=== PATIENT | male | born 1990 | race Caucasian/White ===

== ENCOUNTER → 2018-09-21 | Outpatient (REF) | payer OTHER ==
[2018-09-21 20:01] LABS: INFLUENZA A AMPLIFICATION POSITIVE (NEGATIVE); INFLUENZA B AMPLIFICATION NEGATIVE (NEGATIVE)
== END ==
LOC: M LAB REF 16:26
PROVIDERS: ATTEND Physician Assistant Medical
DX: J11.1 Influenza due to unidentified influenza virus with other respiratory manifestations (principal)

== ENCOUNTER 2019-02-12 09:23 | Emergency (ER) | payer OTHER ==
[~2019-02-12] VITALS: Ht 185.4 cm; Wt 117.8 kg
[2019-02-12] MEDS ORDERED: zyzal (09:31)
[2019-02-12] MEDS ORDERED: ALBU8.5H (09:31)
[2019-02-12] MEDS ORDERED: CEFU1TAB22 (09:31)
[2019-02-12] MEDS ORDERED: ARNU1INH (09:31)
[2019-02-12 10:33] LABS: BASO # 0.1 10^3/uL (0.0-0.2); BASO % 1.7 % (0.0-1.0); EOS # 0.8 10^3/uL (0.0-0.5); EOS % 10.2 % (0.0-3.0); LYMPH # 2.2 10^3/uL (1.5-5.0); LYMPH % 26.6 % (24.0-44.0); MEAN CORPUSCULAR HEMOGLOBIN 29.2 pg (27.0-33.0); MEAN CORPUSCULAR VOLUME 85.7 fl (80.0-96.0); MONO # 0.6 10^3/uL (0.0-0.8); MONO % 6.8 % (0.0-5.0); NEUTROPHILS # 4.4 10^3/uL (1.5-8.5); NEUTROPHILS % 54.1 % (36.0-66.0); PLATELET COUNT, AUTOMATED 194 10^3/uL (150-450); RED BLOOD COUNT 6.17 10^6/uL (4.30-6.10); WHITE BLOOD COUNT 8.2 10^3/uL (4.0-10.0)
[2019-02-12 10:36] LABS: HEMATOCRIT 52.9 % (42.0-52.0)
[2019-02-12] MEDS: IPRATROPIUM 0.5MG/ALBUTEROL 2.5MG INH SOL UD 3ML (DUONEB)(J7620) NEB PRN ×2 (10:37→12:02)
--- NOTE | 2019-02-12 11:02 | REP ---
Chest x-ray: Two views. History: Dyspnea and cough . Comparison study: No comparison study . Findings: The lungs are well inflated and free of infiltrate. The pleural angles are sharp. The heart size is normal. Pulmonary vasculature is not increased. No significant bony abnormality is seen. Impression: Negative chest x-ray. Electronically Signed by Vinicius Ware MD 02/12/2019 10:54 A
[2019-02-12 11:03] LABS: ALBUMIN 4.1 GM/DL (3.2-5.2); ALT/SGPT 112 U/L (12-78); BILIRUBIN,DIRECT 0.2 MG/DL (0.0-0.2); BILIRUBIN,TOTAL 0.5 MG/DL (0.2-1.0); BLOOD UREA NITROGEN 9 MG/DL (7-18); CALCIUM LEVEL 8.9 MG/DL (8.5-10.1); CARBON DIOXIDE LEVEL 28 MEQ/L (21-32); CHLORIDE LEVEL 108 MEQ/L (98-107); CK-MB VALUE MASS 3.3 NG/ML (<3.6); CPK CREATINE PHOSPHOKINASE 221 U/L (39-308); CREATININE FOR GFR 1.17 MG/DL (0.70-1.30); GLOMERULAR FILTRATION RATE > 60.0 (>60); GLUCOSE, FASTING 87 MG/DL (70-100); MB/CK RELATIVE INDEX 1.49 (< OR =4); POTASSIUM SERUM 4.5 MEQ/L (3.5-5.1); SODIUM LEVEL 143 MEQ/L (136-145); TOTAL PROTEIN 7.3 GM/DL (6.4-8.2); TROPONIN I < 0.02 NG/ML (< 0.10)
[2019-02-12 12:30] VITALS: BP 142/82
[2019-02-12] MEDS ORDERED: PRED20TA PO (12:40)
[2019-02-12] MEDS ORDERED: ALBU83IN NEB (12:41)
--- NOTE | 2019-02-12 20:07 | ECGEPIP ---
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
== END 2019-02-12 12:49 | disposition home or self-care (01) ==
LOC: M ED 09:23
DX: J45.901 Unspecified asthma with (acute) exacerbation (principal); R94.5 Abnormal results of liver function studies; R07.1 Chest pain on breathing; R06.02 Shortness of breath; R06.2 Wheezing; G47.30 Sleep apnea, unspecified; J30.9 Allergic rhinitis, unspecified; Z79.899 Other long term (current) drug therapy

== ENCOUNTER → 2019-11-04 | Outpatient (CLI) | payer OTHER ==
[~2019-11-04] MED LIST: ALBU8.5H; ALBU83IN NEB; ARNU1INH; CEFU1TAB22; METHACHOLINE KIT (J7674) INH ONE; PRED20TA PO; zyzal
--- NOTE | 2019-11-04 08:41 | PFTRPT ---
Height: 74.00 Inches Weight: 270.00 Lbs BSA: 2.47 Diagnosis: R06.00 DATE OF STUDY: 11/04/2019 ORDERED BY: Ti Dowd Study of excellent technical quality. Methacholine was ordered, but FEV1 criteria were not met, so a pre and post bronchodilator study was performed. Spirometry: Forced vital capacity reduced. FEV1 out of proportion. Obstructive index is, therefore, reduced. Flow Volume Loop: Expiratory limb of the flow loop consistent with flow rate limitation. Favorable bronchodilator response is identified. IMPRESSION: At least mild reversible obstructive ventilatory defect, suggesting underlying asthma. Please correlate clinically. MTDD
== END ==
LOC: M CARPUL 10-28 14:49
PROVIDERS: ATTEND Physician Assistant
DX: R06.00 Dyspnea, unspecified (principal)

== ENCOUNTER → 2020-05-03 | Outpatient (REF) | payer OTHER ==
[~2020-05-03] MED LIST changes: -METHACHOLINE KIT (J7674) INH ONE
== END ==
LOC: M LAB REF 12:34
PROVIDERS: ATTEND Physician Assistant
DX: R05 Cough (principal); R53.83 Other fatigue; R06.09 Other forms of dyspnea

== ENCOUNTER → 2020-11-16 | Outpatient (CLI) | payer OTHER ==
[~2020-11-16] MED LIST changes: +GASTROGRAFIN SOLUTION 30ML (Q9963) As Ordered ONE; +ISOVUE-370 76% 100ML VIAL As Ordered ONE
--- NOTE | 2020-11-16 17:55 | REP ---
INDICATION: UMBILICAL HERNIA, EVAL BOWEL FOR FATTY INVOLVEMENT. COMPARISON: 05/08/2015 TECHNIQUE: Axial contrast-enhanced images from the lung bases to the pubic symphysis using oral and 100 cc Isovue 370 intravenous contrast material. Coronal and sagittal reformations obtained. This CT examination was performed using the following dose reduction techniques: Automated exposure control, adjustment of mA and/or kv according to the patient's size, and the use of iterative reconstruction technique. FINDINGS: Liver, spleen, pancreas, gallbladder, bilateral adrenal glands and kidneys are normal. Incidental splenic calcifications again noted and consistent with prior granulomatous disease. 2 cm chronic fat containing periumbilical hernia. The enteric system including stomach, small, and large bowel appears normal. No evidence for obstruction or acute inflammatory process. Normal terminal ileum and appendix are identified in the right lower quadrant. Few scattered sigmoid diverticula noted without acute diverticulitis. Pelvis demonstrates normal bladder and age-appropriate prostate/seminal vesicles. Moderate fat containing right inguinal hernia noted. No ascites. No free air. No intraperitoneal or retroperitoneal adenopathy. Abdominal aorta and vasculature appear normal. Musculoskeletal structures are intact and without acute osseous abnormality. IMPRESSION: 1. 2 cm fat containing periumbilical hernia and 3 cm fat containing right inguinal hernia without fluid or stranding to suggest acute process. 2. Scattered sigmoid diverticula without acute diverticulitis. 3. No acute abdominopelvic pathology appreciated. <Electronically signed by Mina Frank > 11/16/20 [id number]
== END ==
LOC: M RAD 15:31
PROVIDERS: ATTEND Physician Assistant
DX: K42.9 Umbilical hernia without obstruction or gangrene (principal)
CPT/HCPCS: 74177; Q9963; Q9967

== ENCOUNTER → 2020-12-28 | Outpatient (CLI) | payer OTHER ==
[~2020-12-28] MED LIST changes: +ARMO150T PO; +FLUT1INH3; -GASTROGRAFIN SOLUTION 30ML (Q9963) As Ordered ONE; -ISOVUE-370 76% 100ML VIAL As Ordered ONE; +MELO15TA28; +MONT10TA10; +TIZA4TAB4; +xyzal PO
== END ==
LOC: M LABSMTC 12:13
PROVIDERS: ATTEND Anesthesiology
DX: Z01.812 Encounter for preprocedural laboratory examination (principal); Z20.822 Contact with and (suspected) exposure to COVID-19

== ENCOUNTER 2021-01-02 09:48 | Day surgery (SDC) | payer OTHER ==
[~2021-01-02] VITALS: Ht 185.4 cm; Wt 125.1 kg
[~2021-01-02 09:48] MED LIST changes: +LACRILUBE (AKWA TEARS) OPHTH OINT 3.5 GM As Ordered ONE; +LIDOCAINE 2% 100MG/5ML SDV (FOR ANES.) As Ordered ONE; +LR 1,000 ML IV ONE; +MIDAZOLAM INJ 2MG/2ML VIAL (J2250 PER 1MG) As Ordered ONE; +ROCURONIUM BROMIDE 50 MG/5 ML VIAL As Ordered ONE; +ceFAZolin SOD 2 GM in IV 1 EA IV ONE; +fentaNYL 250 MCG/5 ML INJECTION (J3010) As Ordered ONE; +propofoL 200 MG/20 ML VIAL As Ordered ONE
[2021-01-02] MEDS ORDERED: BUPIVACAINE LIPOSOME/PF 1.3% 20ML VIAL (13.3MG/ML)(EXPAREL)(C9290 PER1MG) As Ordered ONE (11:33)
[2021-01-02] MEDS ORDERED: BUPIVACAINE HCL 0.25% 10ML VIAL As Ordered ONE (11:33)
[2021-01-02] MEDS ORDERED: fentaNYL 250 MCG/5 ML INJECTION (J3010) As Ordered ONE (12:24)
[2021-01-02] MEDS ORDERED: ROCURONIUM BROMIDE 50 MG/5 ML VIAL As Ordered ONE (12:24)
[2021-01-02] MEDS ORDERED: ONDANSETRON 4MG/2ML VIAL As Ordered ONE (12:40)
[2021-01-02] MEDS ORDERED: ACETAMINOPHEN 1000MG 100ML IV BTL (OFIRMEV) (J0131 PER 10MG) As Ordered ONE (12:40)
[2021-01-02] MEDS ORDERED: dexameTHASONE 4 MG/ML 1ML VIAL (J1100 PER 1MG) As Ordered ONE (12:41)
[2021-01-02] MEDS ORDERED: KETOROLAC 60MG 2ML VIAL As Ordered ONE (12:41)
[2021-01-02] MEDS ORDERED: SUGAMMADEX SODIUM 500 MG/5 ML VIAL (BRIDION) As Ordered ONE (12:50)
[2021-01-02] MEDS ORDERED: LR 1,000 ML IV SCH ×2 (13:45→14:00)
--- NOTE | 2021-01-02 13:50 | RO ---
OPERATIVE NOTE DATE OF OPERATION: 01/02/2021 PREOPERATIVE DIAGNOSES: 1. Umbilical hernia. 2. Right inguinal hernia. POSTOPERATIVE DIAGNOSES: 1. Umbilical hernia. 2. Right inguinal hernia (indirect). PROCEDURES: 1. Robotic-assisted laparoscopic repair of right inguinal hernia. 2. Robotic-assisted laparoscopic repair of umbilical hernia. SURGEON: John Paul Swain Jr, MD. COSMETICS SUPERVISOR: Caity Cruz (provided trocar placement, abdominal wall closure, instrument exchange and mesh placement). ANESTHESIA: General endotracheal anesthesia. EBL: 25 mL. FLUIDS: Crystalloid. DESCRIPTION OF PROCEDURE: The patient was brought to the operating room and was given general anesthesia. After adequate anesthesia and preoperative antibiotics, the patient was prepped and draped in the usual sterile fashion. Next, a supraumbilical incision was made with a skin knife. Blunt dissection was carried down to the fascia. Fascia was entered with Veress needle and insufflated to 15 mm of pressure. An 8 mm trocar was placed at the epigastric site and under direct visualization two lateral epigastric trocars were placed. The robot was docked with the patient in Trendelenburg position. The right inguinal area was dissected out with peritoneum with monopolar cut scissors to make the flap and eventually these were mobilized quite nicely off the cord structures. There was a lipoma of the cord that was also delivered out of this area as well. Once the preperitoneal space, Aron's ligament, lateral border of the pubis was well visualized, the mesh was cut to the appropriate size and placed into the preperitoneal space. The peritoneum was closed with running 3-0 V-Loc suture. The umbilicus had a great deal of fatty tissue present in the preperitoneal space and it was hard to tell exactly how big the fascial defect was, although I felt that it was not really much larger than 1 cm when I palpated it externally. At this point a great deal of preperitoneal fat was brought down; there was some oozing, some preperitoneal fat bleeders that were controlled with bipolar cautery. Once the fascia was nicely exposed circumferentially at the umbilicus this was closed in transverse manner with running #0 Stratafix in two layers. The abdomen was desufflated under direct visualization. All trocars were removed and incisions were closed with 4-0 Vicryl in skin layer and Steri-Strips and a dry sterile dressing were applied. The patient was awakened, extubated, and brought to the recovery room awake, alert, and hemodynamically stable. Sponge and needle counts correct x2.
[2021-01-02] MEDS ORDERED: fentaNYL 100 MCG/2 ML INJECTION (J3010) IV PRN (14:00)
[2021-01-02] MEDS ORDERED: ONDANSETRON 4MG/2ML VIAL IV PRN (14:00)
[2021-01-02] MEDS ORDERED: oxyCODONE 5MG TAB PO PRN (14:00)
[2021-01-02] MEDS: HYDROMORPHONE HCL 0.5 MG/ 0.5 ML SYRINGE (J1170 PER 1) IV PRN ×2 (14:14→14:20)
[2021-01-02 16:55] VITALS: BP 130/82
[2021-01-03] MEDS ORDERED: IBUP200C25 PO (14:38)
[2021-01-03] MEDS ORDERED: OXYC-517 (14:38)
[2021-01-03] MEDS ORDERED: HYDR-3713 (14:38)
[2021-01-03] MEDS ORDERED: KETO10TAB PO (19:05)
== END 2021-01-02 17:00 | disposition home or self-care (01) ==
LOC: M SDC 09:48
PROVIDERS: ATTEND Surgery
DX: K40.90 Unilateral inguinal hernia, without obstruction or gangrene, not specified as recurrent (principal); K42.9 Umbilical hernia without obstruction or gangrene; J45.909 Unspecified asthma, uncomplicated; Z79.52 Long term (current) use of systemic steroids; R51.9 Headache, unspecified; Z79.899 Other long term (current) drug therapy; G47.33 Obstructive sleep apnea (adult) (pediatric)
CPT/HCPCS: 49650; 49652; C1781; C9290; J0131; J0690; J1100; J1170; J1885; J2250; J2405; J3010; S2900

== ENCOUNTER 2021-01-03 14:18 | Emergency (ER) | payer OTHER ==
[~2021-01-03] VITALS: Ht 185.4 cm; Wt 125.0 kg
[~2021-01-03 14:18] MED LIST changes: -LACRILUBE (AKWA TEARS) OPHTH OINT 3.5 GM As Ordered ONE; -LIDOCAINE 2% 100MG/5ML SDV (FOR ANES.) As Ordered ONE; -LR 1,000 ML IV ONE; -MIDAZOLAM INJ 2MG/2ML VIAL (J2250 PER 1MG) As Ordered ONE; -ROCURONIUM BROMIDE 50 MG/5 ML VIAL As Ordered ONE; -ceFAZolin SOD 2 GM in IV 1 EA IV ONE; -fentaNYL 250 MCG/5 ML INJECTION (J3010) As Ordered ONE; -propofoL 200 MG/20 ML VIAL As Ordered ONE
[2021-01-03] MEDS ORDERED: OXYC-517 (14:38)
[2021-01-03] MEDS ORDERED: HYDR-3713 (14:38)
[2021-01-03] MEDS ORDERED: IBUP200C25 PO (14:38)
[2021-01-03] MEDS ORDERED: KETOROLAC 30 MG/ML 1ML VIAL IV ONE (16:30)
--- NOTE | 2021-01-03 18:22 | REP ---
INDICATION: right testicular pain s/p hernia repair 01/03. COMPARISON: None. TECHNIQUE: Real-time sonographic evaluation of scrotum and contents performed. FINDINGS: The testicles are normal in size and echotexture, right testicle measuring 5.1 x 2.8 x 3.2 cm and left testicle 4.8 x 2.7 x 3.4 cm. No testicular mass or torsion is seen. Blood flow is seen in each testicle with duplex Doppler evaluation. The epididymis is unremarkable bilaterally. No hydrocele is seen. IMPRESSION: Negative scrotal ultrasound. <Electronically signed by Maximo Johnson > 01/03/21 [id number]
--- NOTE | 2021-01-03 18:29 | REP ---
INDICATION: right testicular pain s/p hernia repair 01/03. COMPARISON: CT 11/16/2020. TECHNIQUE: Real-time sonographic evaluation of right inguinal region performed status post right inguinal hernia repair 01/02/2021. FINDINGS: Mesh is seen at the right internal inguinal ring. Mild fluid and fat are seen in the inguinal canal. There is no movement with Valsalva maneuver. The left inguinal canal is unremarkable. IMPRESSION: Mesh material at the right internal inguinal ring status post hernia repair. Fat and mild fluid in the right inguinal canal. <Electronically signed by Maximo Johnson > 01/03/21 [id number]
[2021-01-03] MEDS ORDERED: KETO10TAB PO (19:05)
[2021-01-03 20:00] VITALS: BP 130/74
== END 2021-01-03 20:14 | disposition home or self-care (01) ==
LOC: EDBD 14:18 → M ED 14:18
DX: G89.28 Other chronic postprocedural pain (principal); R10.2 Pelvic and perineal pain; J45.909 Unspecified asthma, uncomplicated; G47.30 Sleep apnea, unspecified; J30.89 Other allergic rhinitis; Z79.899 Other long term (current) drug therapy
CPT/HCPCS: 76857; 76870; 93976; 96374; 99284; J1885

== ENCOUNTER 2021-11-04 23:24 | Emergency (ER) | payer OTHER ==
[~2021-11-04] VITALS: Ht 185.4 cm; Wt 130.3 kg
[~2021-11-04 23:24] MED LIST changes: +ALBU2.5V10 NEB; -ALBU83IN NEB; +HYDR-3713; +IBUP200C25 PO; +KETO10TAB PO; -MONT10TA10; +MONT10TA97; +OXYC-517; +TIZA10TA; -TIZA4TAB4
[2021-11-04 23:25] VITALS: BP 165/96
[2021-11-04] MEDS ORDERED: TIZA1TAB12 PO (23:31)
== END 2021-11-05 02:03 | disposition left against medical advice (07) ==
LOC: M ED 23:24
DX: Z53.21 Procedure and treatment not carried out due to patient leaving prior to being seen by health care provider (principal)

== ENCOUNTER → 2022-08-27 | Outpatient (CLI) | payer OTHER ==
[~2022-08-27] MED LIST changes: +TIZA1TAB12 PO
[2022-08-27 15:10] LABS: BASO # 0.1 10^3/uL (0.0-0.2); BASO % 0.9 % (0.0-1.0); EOS # 0.3 10^3/uL (0.0-0.5); EOS % 2.9 % (0.0-3.0); HEMATOCRIT 46.8 % (42.0-52.0); HEMOGLOBIN 15.6 g/dl (13.5-17.5); LYMPH # 2.5 10^3/uL (1.5-5.0); LYMPH % 24.1 % (24.0-44.0); MEAN CORPUSCULAR HEMOGLOBIN 28.6 pg (27.0-33.0); MEAN CORPUSCULAR HGB CONC 33.3 g/dl (32.0-36.5); MEAN CORPUSCULAR VOLUME 85.9 fl (80.0-96.0); MONO # 0.7 10^3/uL (0.0-0.8); MONO % 6.4 % (2.0-8.0); NEUTROPHILS # 6.8 10^3/uL (1.5-8.5); NEUTROPHILS % 65.1 % (36.0-66.0); PLATELET COUNT, AUTOMATED 191 10^3/uL (150-450); RED BLOOD COUNT 5.45 10^6/uL (4.30-6.10); WHITE BLOOD COUNT 10.5 10^3/uL (4.0-10.0)
[2022-08-27 15:36] LABS: ALBUMIN 4.2 G/DL (3.2-5.2); ALKALINE PHOSPHATASE 118 U/L (46-116); ALT/SGPT 61 U/L (7.0-40); AST/SGOT 31 U/L (<34); BILIRUBIN,TOTAL 0.4 MG/DL (0.3-1.2); BLOOD UREA NITROGEN 12 MG/DL (9-23); CALCIUM LEVEL 9.6 MG/DL (8.5-10.1); CARBON DIOXIDE LEVEL 31 MMOL/L (20-31); CHLORIDE LEVEL 106 MMOL/L (98-107); CHOLESTEROL LEVEL 207 MG/DL (<200); CHOLESTEROL RISK RATIO 6.78 (<5); CREATININE FOR GFR 1.03 MG/DL (0.70-1.30); GLOMERULAR FILTRATION RATE > 60.0 (>60); GLUCOSE, FASTING 81 MG/DL (60-100); HDL CHOLESTEROL 30.5 MG/DL (>40); LDL CHOLESTEROL 113.3 MG/DL (<100); NON-HDL-C 176.5 MG/DL; POTASSIUM SERUM 4.4 MMOL/L (3.5-5.1); SODIUM LEVEL 143 MMOL/L (136-145); TRIGLYCERIDES LEVEL 316 MG/DL (<150)
[2022-08-27 15:38] LABS: FREE T4 0.94 NG/DL (0.89-1.76); THYROID STIMULATING HORMONE 1.159 uIU/ML (0.55-4.78)
== END ==
LOC: M LAB 14:12
PROVIDERS: ATTEND Family Medicine
DX: Z13.220 Encounter for screening for lipoid disorders (principal); Z13.29 Encounter for screening for other suspected endocrine disorder; Z13.0 Encounter for screening for diseases of the blood and blood-forming organs and certain disorders involving the immune mechanism